=== PATIENT | female | born 2000 | race African-American/Black ===

== ENCOUNTER 2019-09-02 09:59 | Inpatient (IN) ==
[2019-09-02] MEDS ORDERED: LR 1,000 ML ONE (10:29)
[2019-09-02] MEDS ORDERED: KEFZOL 2 GM/D5W 2 GM/50 ML IVPB IV PRN (10:32)
[2019-09-02] MEDS ORDERED: STADOL IV PRN (10:32)
[2019-09-02] MEDS ORDERED: PEPCID IV PRN (10:32)
[2019-09-02] MEDS ORDERED: REGLAN PO PRN (10:32)
[2019-09-02] MEDS ORDERED: LR 500 ML IV ONE (10:32)
[2019-09-02] MEDS ORDERED: ZOFRAN IV PRN (10:32)
[2019-09-02] MEDS ORDERED: TYLENOL PO PRN (10:32)
[2019-09-02] MEDS ORDERED: AMPICILLIN 2 GM in NS 100 ML IV ONE (10:32)
[2019-09-02] MEDS ORDERED: PEPCID PO PRN ×2 (10:32)
[2019-09-02] MEDS ORDERED: AMPICILLIN ONE (10:40)
[2019-09-02] MEDS ORDERED: SODIUM CHLORIDE 0.9% INJ SCH (10:45)
[2019-09-02] MEDS ORDERED: PITOCIN 30 UNITS/NS 30 UNIT/500 ML IV.SOLN IV SCH ×2 (10:45→15:30)
[2019-09-02 10:53] LABS: BASO# 0.01 X1000 (0.0-0.2); BASO% 0.1 % (0.0-0.8); EOS# 0.01 X1000 (0.0-0.7); EOS% 0.1 % (0.0-10.0); HEMATOCRIT 38.2 % (37.0-47.0); HEMOGLOBIN 12.1 g/dL (12.0-16.0); IMM GRAN# 0.06 X1000 (0.0-0.04); IMM GRAN% 0.6 % (0.0-0.5); LYMPH# 1.48 X1000 (1.2-3.4); MCH 26.1 PG (27-31); MCHC 31.7 g/dL (33-37); MCV 82.5 FL (81-99); MONO# 0.76 X1000 (0.11-0.59); MONO% 7.7 % (1.7-9.3); MPV 11.4 FL (7.4-10.4); NEUT# 7.57 X1000 (1.4-6.5); NEUT% 76.5 % (42.2-75.2); PLT 201 X1000 (130-400); RBC 4.63 XMIL (4.2-5.4); RDW 14.9 % (11.5-14.5); WBC 9.89 X1000 (4.8-10.8)
[2019-09-02] MEDS ORDERED: FENTANYL-BUPIV-NS 500 MCG-0.125% 250 ML EPIDURAL PRN (10:57)
[2019-09-02] MEDS ORDERED: FENTANYL IV ONE (11:00)
[2019-09-02] MEDS ORDERED: NEO-SYNEPHRINE IV ONE (11:00)
[2019-09-02] MEDS ORDERED: NAROPIN 0.2% ONE (11:34)
--- NOTE | 2019-09-02 13:07 | HISTORY AND PHYSICAL ---
CHIEF COMPLAINT: Abdominal pain. HISTORY OF PRESENT ILLNESS: This 19-year-old, G2, P1-0-0-1 at 37 weeks and 6 days, presented to Labor and Delivery with a complaint of regular contractions that started at 5 a.m. this morning. She is feeling contractions every 2 minutes. She denies any leaking fluid or vaginal bleeding. She endorses movement. She has received limited care this , and has been followed by Dr. West for a total of 3 visits. Her care has been uncomplicated. Her GBS status is positive. She is dated by a third trimester ultrasound with an estimated due date of 09/17/2019. OBSTETRIC HISTORY: G1: Spontaneous vaginal delivery at 38 weeks, male, 5 pounds 2 ounces (01/2018). G2 is current with limited care. GYNECOLOGIC HISTORY: She has a history of Chlamydia with her first . She denies any current sexually transmitted infections. She denies any history of abnormal Pap smears. Menarche was at age 12. PAST MEDICAL HISTORY: Denies. MEDICATIONS: vitamin p.o. daily. ALLERGIES: No known drug allergies. PAST SURGICAL HISTORY: Denies. SOCIAL HISTORY: She denies tobacco, alcohol, or drug use. LABORATORY DATA: White blood cell count 9.8, hemoglobin 12.1, hematocrit 38.2, platelets 201,000. Blood type O positive. Group B strep positive. PHYSICAL EXAMINATION: VITAL SIGNS: Temperature 96.8 degrees, blood pressure 104/61, heart rate 90, O2 saturation 97% on room air. heart tracings: 130/moderate/positive accelerations/no decelerations. Tocometry every 1 to 2 minutes. GENERAL: Alert, in moderate distress secondary to pain. LUNGS: Clear to auscultation bilaterally. No respiratory distress. HEART: Regular rate and rhythm. ABDOMEN: Soft, gravid, nontender. PELVIC: Serial vaginal exam: /-1 per registered nurse. EXTREMITIES: No clubbing, cyanosis, or edema. IMAGING: Bedside ultrasound: Vertex presentation, estimated weight 3200 grams. ASSESSMENT AND PLAN: A 26-year-old, G2, P1-0-0-1 at 37 weeks and 6 days, in labor with limited care and group B strep positive. 1. Admit to Labor and Delivery. 2. Maternal/ status stable. 3. Continuous external monitoring and tocometry. 4. Will treat with ampicillin for group B strep positive status. 5. The patient may have epidural if she desires. 6. Anticipate vaginal delivery.
--- NOTE | 2019-09-02 13:31 | OB/GYN PROGRESS NOTE ---
- Subjective 19 yo at 37w6d in labor, limited PNC, GBS positive Patient seen and examined. She is s/p epidural and comfortable. AROM performed at 1320, fluid clear mixed with small amount blood. Head well applied to cervix. SVE: /-2 FHT: 120/moderate/+Accel/no decel [place]: Q1-4 minutes OB Physical Exam Vital Signs - 8 hr 09/02/19 10:15 09/02/19 12:00 Temperature 98.9 F 97.6 F Pulse Rate 74 Respiratory Rate 18 Blood Pressure 111/74 O2 Sat by Pulse Oximetry 95 - CONSTITUTIONAL General Appearance: appears well, alert, no apparent distress - EYES Eyes: PERRL/EOMI - RESPIRATORY Respiratory: no respiratory distress - CARDIOVASCULAR Cardiovascular: regular rate, rhythm - GASTROINTESTINAL (ABDOMEN) Abdominal Exam: non tender, soft, other (gravid) - GENITOURINARY Vaginal Exam: /-2 - MUSCULOSKELETAL Extremity: normal range of motion - NEUROLOGIC Neurologic: grossly normal - PSYCHIATRIC Psych/Mental Status: normal mood/affect Active Medications Generic Name Dose Route Start Last Admin Trade Name Freq PRN Reason Stop Dose Admin Acetaminophen 650 mg 09/02/19 10:32 Tylenol PO Q4-6H PRN PRN Headache Butorphanol Tartrate 2 mg 09/02/19 10:32 09/02/19 10:48 Stadol IV 2 mg PRN PRN Administration Pain Famotidine 20 mg 09/02/19 10:32 Pepcid PO ONCE PRN PRN section Famotidine 40 mg 09/02/19 10:32 Pepcid PO Q12H PRN PRN GI upset or indigestion Famotidine 20 mg 09/02/19 10:32 Pepcid IV Q12H PRN PRN GI upset or indigestion Ampicillin Sodium 1 gm/ Sodium 50 mls @ 100 mls/hr 09/02/19 14:35 Chloride IV Q4H ANGELINE Lactated Ringer's 1,000 mls @ 125 mls/hr 09/02/19 10:45 Lr IV .Q8H ANGELINE Oxytocin/Sodium Chloride 30 unit in 500 mls @ 0 mls/hr 09/02/19 10:45 09/02/19 12:45 Pitocin 30 Units/Ns IV 2 mls/hr .Q0M ANGELINE Administration As Directed Cefazolin Sodium/Dextrose 2 gm in 50 mls @ 50 mls/hr 09/02/19 10:32 Kefzol 2 Gm/D5w IV ONCE PRN PRN section Fentanyl/Bupivacaine/Sodium Chlor 250 mls @ 0 mls/hr 09/02/19 10:57 09/02/19 11:54 Qapndkri-Cykmq-Tt 500 Mcg-0.125% EPIDURAL 12 mls/hr .Q0M PRN Administration As Directed Metoclopramide HCl 10 mg 09/02/19 10:32 Reglan PO ONCE PRN PRN section Ondansetron HCl 4 mg 09/02/19 10:32 Zofran IV PRN PRN Nausea Sodium Chloride 5 - 10 ml 09/02/19 10:45 Sodium Chloride 0.9% INJ DIRECTED [facility] Laboratory Results - last 24 hr 09/02/19 09/02/19 10:28 10:28 WBC 9.89 RBC 4.63 Hgb 12.1 Hct 38.2 MCV 82.5 MCH 26.1 L MCHC 31.7 L RDW Std Deviation 14.9 H Plt Count 201 MPV 11.4 H Immature Gran % (Auto) 0.6 H Neut % (Auto) 76.5 H Lymph % (Auto) 15.0 L [place] % (Auto) 7.7 Eos % (Auto) 0.1 Baso % (Auto) 0.1 Immature Gran # (Auto) 0.06 H Neut # (Auto) 7.57 H Lymph # (Auto) 1.48 [place] # (Auto) 0.76 H Eos # (Auto) 0.01 Baso # (Auto) 0.01 RPR NON-REACTIVE OB Assessment & Plan (1) Intrauterine Status: Acute Plan: 19 yo at 37w6d in labor, limited PNC, GBS positive, RNI status 1. MF status stable 2. AROM at 1320 3. Continue pitocin augmentation 4. Comfortable s/p epidural 5. Ampicillin for GBS positive 6. Anticipate vaginal delivery
[2019-09-02] MEDS: AMPICILLIN 1 GM in NS 50 ML IV SCH ×2 (14:21→22:09)
[2019-09-02] MEDS ORDERED: MINERAL OIL TOP PRN (14:37)
[2019-09-02] MEDS ORDERED: XYLOCAINE-MPF 1% INJ PRN ×2 (14:37→15:23)
[2019-09-02] MEDS: LR 1,000 ML IV SCH ×2 (14:53→22:09)
[2019-09-02] MEDS ORDERED: PERCOCET-5 PO PRN (15:23)
[2019-09-02] MEDS ORDERED: ATARAX PO PRN (15:23)
[2019-09-02] MEDS ORDERED: PERI MEDS (DERMOPLAST/NUPERCAINAL/TUCKS) MISC PRN (15:23)
[2019-09-02] MEDS ORDERED: HYDROXYZINE IM PRN (15:23)
[2019-09-02] MEDS ORDERED: BENADRYL PO PRN (15:23)
[2019-09-02] MEDS ORDERED: PERCOCET-10 PO PRN (15:23)
[2019-09-02] MEDS ORDERED: BOOSTRIX VACCINE IM ONE (15:23)
[2019-09-02] MEDS ORDERED: M-M-R II VACCINE SUBQ ONE (15:23)
[2019-09-02] MEDS ORDERED: MINERAL OIL PO PRN (15:23)
[2019-09-02] MEDS ORDERED: PITOCIN IM PRN (15:23)
[2019-09-02] MEDS ORDERED: CYTOTEC PO PRN (15:23)
[2019-09-02] MEDS ORDERED: AMBIEN PO PRN (15:23)
[2019-09-02] MEDS ORDERED: BENADRYL IV PRN (15:23)
[2019-09-02] MEDS ORDERED: PITOCIN 20 UNITS/NS 20 UNITS/1,000 ML IV.SOLN IV SCH (15:30)
--- NOTE | 2019-09-02 19:51 | OPERATIVE NOTE ---
PROCEDURE DATE: 09/02/2019 PROCEDURE NOTE: A 19-year-old, G2, P 1-0-0-1 at 37 weeks and 6 days, presented to Labor and Delivery in active labor. Labor was augmented with Pitocin and AROM was performed at 13:20. She underwent a spontaneous vaginal delivery at 15:20 of a viable vigorous male infant in CHERRI presentation. Infant's head delivered and a 10 second shoulder dystocia was noted that resolved with suprapubic pressure. The shoulders and body then delivered without difficulty. The cord was clamped and cut and the baby was placed on maternal chest. Apgars were 9 and 9 at one and five minutes respectively. Infant weighed 6 pounds 12 ounces. The placenta then delivered spontaneously intact with a three-vessel cord. No lacerations were noted. Estimated blood loss was 300 mL. Anesthesia was epidural. Mother stable in recovery room.
[2019-09-02] MEDS: PERICOLACE PO SCH (22:07)
[2019-09-03 05:29] LABS: BASO# 0.01 X1000 (0.0-0.2); BASO% 0.1 % (0.0-0.8); EOS# 0.02 X1000 (0.0-0.7); EOS% 0.2 % (0.0-10.0); HEMATOCRIT 33.9 % (37.0-47.0); HEMOGLOBIN 10.5 g/dL (12.0-16.0); IMM GRAN# 0.04 X1000 (0.0-0.04); IMM GRAN% 0.4 % (0.0-0.5); LYMPH# 2.06 X1000 (1.2-3.4); LYMPH% 18.2 % (20.5-51.1); MCH 25.7 PG (27-31); MCV 83.1 FL (81-99); MONO# 1.16 X1000 (0.11-0.59); MONO% 10.3 % (1.7-9.3); MPV 11.9 FL (7.4-10.4); NEUT# 8.02 X1000 (1.4-6.5); NEUT% 70.8 % (42.2-75.2); PLT 191 X1000 (130-400); RBC 4.08 XMIL (4.2-5.4); RDW 14.9 % (11.5-14.5); WBC 11.31 X1000 (4.8-10.8)
[2019-09-03] MEDS: MOTRIN PO PRN ×2 (05:35→19:20)
--- NOTE | 2019-09-03 08:09 | OB/GYN PROGRESS NOTE ---
- Subjective Patient without complaint, PPD #1, circumcision discussed with the patient and she wishes to proceed OB Physical Exam Vital Signs - 8 hr 09/03/19 04:59 Temperature 97.5 F L Respiratory Rate 18 Blood Pressure 111/69 - CONSTITUTIONAL General Appearance: appears well, alert, no apparent distress - EYES Eyes: PERRL/EOMI - HEAD, EARS, NOSE, MOUTH & THROAT HENMT: normocephalic/atraumatic - RESPIRATORY Respiratory: no respiratory distress - CARDIOVASCULAR Cardiovascular: regular rate, rhythm - CHEST (BREASTS) Chest/Breast: deferred - GENITOURINARY Female Genitalia/Pelvic Exam: deferred - SKIN Integumentary: normal color - NEUROLOGIC Neurologic: grossly normal - PSYCHIATRIC Psych/Mental Status: normal mood/affect, oriented x 3 Active Medications Generic Name Dose Route Start Last Admin Trade Name Freq PRN Reason Stop Dose Admin Acetaminophen 650 mg 09/02/19 10:32 Tylenol PO Q4-6H PRN PRN Headache Benzocaine 1 each 09/02/19 15:23 Jacquelyn Meds (Dermoplast/Nupercainal/Tucks) MISC 3-4XDAY PRN PRN episiotomy/hemorrhoids Diphenhydramine HCl 25 mg 09/02/19 15:23 Benadryl PO Q4H PRN PRN Itching Diphenhydramine HCl 12.5 mg 09/02/19 15:23 Benadryl IV Q4H PRN PRN Itching Famotidine 20 mg 09/02/19 10:32 Pepcid PO ONCE PRN PRN section Famotidine 40 mg 09/02/19 10:32 Pepcid PO Q12H PRN PRN GI upset or indigestion Famotidine 20 mg 09/02/19 10:32 Pepcid IV Q12H PRN PRN GI upset or indigestion Hydroxyzine HCl 50 mg 09/02/19 15:23 Atarax PO Q3-4H PRN PRN Nausea Hydroxyzine HCl 50 mg 09/02/19 15:23 Hydroxyzine IM Q3-4H PRN PRN Nausea Lactated Ringer's 1,000 mls @ 125 mls/hr 09/02/19 10:45 09/02/19 22:09 Lr IV Not Given .Q8H ANGELINE Oxytocin/Sodium Chloride 20 units in 1,000 mls @ 0 mls/hr 09/02/19 15:30 09/02/19 16:35 Pitocin 20 Units/Ns IV 125 mls/hr .Q0M ANGELINE Administration As Directed Ibuprofen 800 mg 09/02/19 15:23 09/03/19 05:35 Motrin PO 800 mg Q8H PRN PRN Administration cramping Metoclopramide HCl 10 mg 09/02/19 10:32 Reglan PO ONCE PRN PRN section Misoprostol 800 microgm 09/02/19 15:23 Cytotec PO PRN PRN Severe bleeding Ondansetron HCl 4 mg 09/02/19 10:32 09/02/19 18:19 Zofran IV 4 mg PRN PRN Administration Nausea Oxycodone/Acetaminophen 1 each 09/02/19 15:23 Percocet-10 PO Q3-4H PRN PRN Pain (7-10 on Pain Scale) Oxycodone/Acetaminophen 1 each 09/02/19 15:23 Percocet-5 PO Q3-4H PRN PRN Pain (1-6 on Pain Scale) Oxytocin 20 unit 09/02/19 15:23 Pitocin IM PRN PRN Severe bleeding Senna/Docusate Sodium 1 each 09/02/19 21:00 09/02/19 22:07 Pericolace PO 1 each QHS ANGELINE Administration Sodium Chloride 5 - 10 ml 09/02/19 10:45 Sodium Chloride 0.9% INJ DIRECTED ANGELINE Zolpidem Tartrate 10 mg 09/02/19 15:23 Ambien PO HS PRN PRN Sleep Laboratory Results - last 24 hr 09/02/19 09/02/19 09/02/19 10:28 10:28 10:28 WBC 9.89 RBC 4.63 Hgb 12.1 Hct 38.2 MCV 82.5 MCH 26.1 L MCHC 31.7 L RDW Std Deviation 14.9 H Plt Count 201 MPV 11.4 H Immature Gran % (Auto) 0.6 H Neut % (Auto) 76.5 H Lymph % (Auto) 15.0 L [place] % (Auto) 7.7 Eos % (Auto) 0.1 Baso % (Auto) 0.1 Immature Gran # (Auto) 0.06 H Neut # (Auto) 7.57 H Lymph # (Auto) 1.48 [place] # (Auto) 0.76 H Eos # (Auto) 0.01 Baso # (Auto) 0.01 RPR NON-REACTIVE Blood Type O POSITIVE Antibody Screen NEGATIVE 09/03/19 05:00 WBC 11.31 H RBC 4.08 L Hgb 10.5 L Hct 33.9 L MCV 83.1 MCH 25.7 L MCHC 31.0 L RDW Std Deviation 14.9 H Plt Count 191 MPV 11.9 H Immature Gran % (Auto) 0.4 Neut % (Auto) 70.8 Lymph % (Auto) 18.2 L [place] % (Auto) 10.3 H Eos % (Auto) 0.2 Baso % (Auto) 0.1 Immature Gran # (Auto) 0.04 Neut # (Auto) 8.02 H Lymph # (Auto) 2.06 [place] # (Auto) 1.16 H Eos # (Auto) 0.02 Baso # (Auto) 0.01 RPR Blood Type Antibody Screen OB Assessment & Plan (1) Normal course Status: Acute Plan: routine care
[2019-09-04] MEDS: PERICOLACE PO SCH (04:24)
[2019-09-04] MEDS ORDERED: FLU VACCINE IM ONE (07:30)
[2019-09-04 09:13] VITALS: BP 115/73
--- NOTE | 2019-09-05 07:51 | DISCHARGE SUMMARY ---
ADMISSION DATE: 09/02/2019 DISCHARGE DATE: 09/04/2019 HOSPITAL COURSE: The patient is a 19-year-old 2, para 1 now 2, who presented at 37 and 6/7 weeks gestation to Labor and Delivery in active phase of labor. She underwent a normal labor and delivery with epidural anesthesia and a normal spontaneous vaginal delivery. Please see separate delivery note. Her course was uncomplicated. On day #1, she is afebrile with stable vital signs. She is ambulating, voiding, tolerating a regular diet. Hemoglobin 10.5, down from 12.1. On day #2, she is ambulating, voiding, tolerating regular diet. Vital signs stable, afebrile, and discharged home in stable condition. She is asked to follow up in the office in 6 weeks. Call the office for pain or fever greater than 100.4, abnormal uterine bleeding. Maintain pelvic rest and regular diet. Continue vitamins and iron. A prescription for Motrin provided.
== END 2019-09-04 10:54 | disposition home or self-care (01) | DRG 807 ==
LOC: NBC 09:59 → LD 10:01
PROVIDERS: ADMIT Student in an Organized Health Care Education/Training Program; ATTEND Student in an Organized Health Care Education/Training Program